=== PATIENT | female | born 1980 | race Caucasian/White ===

== ENCOUNTER 2019-04-22 03:12 | Emergency (ER) | payer SELFPAY ==
[~2019-04-22] VITALS: Ht 152.4 cm; Wt 58.8 kg
[2019-04-22 03:14] VITALS: BP 123/75; PULSE 75; RESP 18; Ht 152.4 cm; Wt 58.8 kg
--- NOTE | 2019-04-22 04:38 | ERD ---
ER Documentation Chief Complaint Chief Complaint BURNING EYES X'S 3 WEEKS HPI Patient is a 38-year-old female with no past medical history presenting to the clinic for bilateral dry eyes X 3 weeks. She reports that her eyes feel like they are always burning like sandpaper. She denies any ocular discharge, crusting, visual impairment. Patient denies any OTC medication . ROS All systems reviewed and are negative except as per history of present illness. Allergies Allergies: Coded Allergies: No Known Allergy (Unverified , 04/22/19) PMhx/Soc Medical and Surgical Hx: pt denies Medical Hx History of Surgery: Yes () Anesthesia Reaction: No Hx Neurological Disorder: No Hx Respiratory Disorders: No Hx Cardiac Disorders: No Hx Psychiatric Problems: No Hx Miscellaneous Medical Probl: No Hx Alcohol Use: No Hx Substance Use: No Hx Tobacco Use: No Smoking Status: Never smoker FmHx Family History: No diabetes, No coronary disease, No other Physical Exam Vitals Vital Signs Date Temp Pulse Resp B/P (MAP) Pulse Ox O2 O2 Flow FiO2 Time Delivery Rate 04/22/19 96.8 75 18 123/75 99 03:14 (91) Physical Exam Const: No acute distress Head: Atraumatic Eyes: Dry Conjunctiva with mild erythema. No discharge, crusting. PERRLA. EOMI. ENT: Normal External Ears, Nose and Mouth. Neck: Full range of motion. No meningismus. Resp: Clear to auscultation bilaterally Cardio: Regular rate and rhythm, no murmurs Neur: Awake and alert Psych: Normal Mood and Affect Procedures/MDM Patient was seen and evaluated for dry eyes without complication. No further work-up required for today's visit. Patient stable ready for discharge. Follow-up with PCP. Patient will be discharged with artificial eyedrops. Departure Diagnosis: Primary Impression: Dry eyes due to decreased tear production Condition: Stable Patient Instructions: Treating Dry Eyes, What Are Dry Eyes? Referrals: [facility] Additional Instructions: Paciente aconseja volver a Departamento de urgencias inmediatamente para sntomas nuevos o que empeoran . Paciente aconseja posteriores con el PCP en 2-3 salas . Paciente verbaliza la comprehensin y est de acuerdo con el tratamiento y el curso de accin. Si el paciente no tiene ninguna de atencin primaria pueden seguir con [facility] [address] [place] [address] o [facility] + [address] [address] MARIA ESTHER KIRK PA-C Apr 22, 2019 04:38
[2019-04-22] MEDS ORDERED: CARB15DR3 BOTH EYES (04:39)
[2019-04-22] MEDS ORDERED: MINE3.5O31 BOTH EYES (04:39)
== END 2019-04-22 04:43 | disposition home or self-care (01) ==
LOC: FTE 03:12
DX: H57.89 Other specified disorders of eye and adnexa (principal)
CPT/HCPCS: 99282

== ENCOUNTER 2019-05-25 03:00 | Emergency (ER) | payer SELFPAY ==
[~2019-05-25] VITALS: Ht 157.5 cm; Wt 57.6 kg
[~2019-05-25 03:00] MED LIST: ACET500C5 PO; CARB15DR3 BOTH EYES; IBUP800T48 PO; MINE3.5O31 BOTH EYES; ONDA4TAB14 PO
[2019-05-25 03:06] VITALS: Ht 157.5 cm; Wt 57.6 kg
[2019-05-25] MEDS ORDERED: METOCLOPRAMIDE 10 MG INJ IV STA (04:13)
[2019-05-25] MEDS ORDERED: SOD CHLORIDE 0.9% 1,000 ML IV STA (04:13)
[2019-05-25] MEDS: KETOROLAC 30 MG INJ IV STA ×2 (04:57→05:13)
--- NOTE | 2019-05-25 05:43 | ERD ---
ER Documentation Chief Complaint Chief Complaint Pt reports ROSADO not relieved with tylenol HPI 38-year-old female presents to ED complaining of headache and dizziness times today. She denies any previous history of headaches or migraines. She denies any head trauma. She reports feeling slightly nauseous. She has tried Tylenol without any relief of pain. She reports her headache feels like a tight band around her head and is throbbing sensation and rates it as 8 out of 10. She denies any other past medical history and does not take medications on a daily basis. ROS All systems reviewed and are negative except as per history of present illness. Medications Home Meds Active Scripts Acetaminophen* (Tylophen*) 500 Mg Capsule, 1 CAP PO Q6H PRN for PAIN AND OR ELEVATED TEMP, #20 CAP Prov:RAJINDER YADAV PA-C 05/25/19 Ondansetron (Ondansetron Odt) 4 Mg Tab.rapdis, 4 MG PO Q6H PRN for NAUSEA AND/OR VOMITING, #10 TAB Prov:RAJINDER YADAV PA-C 05/25/19 Ibuprofen* (Motrin*) 800 Mg Tab, 800 MG PO Q6H PRN for PAIN AND OR ELEVATED TEMP, #30 TAB Prov:RAJINDER YADAV PA-C 05/25/19 Carboxymethylcellulose Sodium* (Refresh Tears*) 15 Ml Drops, 2 DROP BOTH EYES QID, #1 EA Prov:MARIA ESTHER KIRK PA-C 04/22/19 Artificial Tears* (Akwa Oint*) 3.5 Gm Oint, 1 APPLIC BOTH EYES HS, #1 TUB Prov:MARIA ESTHER KIRK PA-C 04/22/19 Allergies Allergies: Coded Allergies: No Known Allergy (Unverified , 04/22/19) PMhx/Soc Medical and Surgical Hx: pt denies Medical Hx History of Surgery: Yes (CS) Anesthesia Reaction: No Hx Neurological Disorder: No Hx Respiratory Disorders: No Hx Cardiac Disorders: No Hx Psychiatric Problems: No Hx Miscellaneous Medical Probl: No Hx Alcohol Use: No Hx Substance Use: No Hx Tobacco Use: No Smoking Status: Never smoker FmHx Family History: No diabetes Physical Exam Vitals Vital Signs Date Temp Pulse Resp B/P (MAP) Pulse Ox O2 O2 Flow FiO2 Time Delivery Rate 05/25/19 98.8 88 20 127/59 100 03:06 (81) Physical Exam Const: No acute distress Head: Atraumatic, tenderness on the scalp throughout Eyes: Normal Conjunctiva, PERRLA Resp: Clear to auscultation bilaterally Cardio: Regular rate and rhythm, Abd: Soft, non tender, non distended. Neur: Awake and alert, CN 2-12 intact, no pronator drift, equal strength and sensation bilaterally 5 out of 5, able to follow all commands appropriately, good crab butcher strength Psych: Normal Mood and Affect Results 24 hrs Laboratory Tests Test 05/25/19 05:10 Bedside Urine pH (LAB) 6.0 Bedside Urine Protein (LAB) 1+ Bedside Urine Glucose (UA) Negative Bedside Urine Ketones (LAB) Negative Bedside Urine Blood Negative Bedside Urine Nitrite (LAB) Negative Bedside Urine Leukocyte Esterase (L Negative POC Beta HCG, Qualitative NEGATIVE Current Medications Medications Dose Sig/Rajeev Start Time Status Last (Trade) Ordered Route PRN Stop Time Admin Dose Reason Admin Sodium 1,000 ml @ Q1H STAT 05/25/19 DC 05/25/19 Chloride 1,000 mls/hr IV 04:13 04:41 05/25/19 05:12 10 mg ONCE STAT 05/25/19 DC 05/25/19 Metoclopramid IV 04:13 04:41 e HCl 05/25/19 04:15 (Reglan) Ketorolac 30 mg ONCE STAT 05/25/19 DC 05/25/19 Tromethamine IV 04:13 05:13 (Toradol) 05/25/19 04:15 Procedures/MDM ED COURSE: The patient was stable throughout ED course. I kept the patient informed of laboratory and diagnostic imaging results throughout the ED course. EKG: Read by Dr. Meeks, attending physician. EKG shows normal sinus rhythm at a rate of 62 bpm No arrhythmias, acute ST elevations or T wave changes were noted. MEDICATIONS GIVEN: IV fluids, Reglan, Toradol Patient tolerated medication well with no adverse reactions. Patient reported improvement in pain. MEDICAL DECISION MAKING: Patient is a 38-year-old female complaining of a tension headache times today. H&P and other data not c/w emergent process (eg. Subarachnoid hemorrhage, acute vertebral or carotid dissection, intracranial mass, epidural hematoma, subdural hematoma, dural venous sinus thrombosis, giant cell arteritis, pseudotumor cere nxion, meningitis, mass, intracranial bleed). Patient was given IV fluids and medications listed above. On reexamination patient was peacefully rested and stated that she felt significantly better. At this time patient is appropriate for outpatient treatment. She was discharged with the medications listed below. Patient was given strict return ED precautions symptoms persist or worsen. All questions were answered. Patient agreed the plan Vital signs were reviewed. Patient is afebrile. Patient was not hypoxic. Patient was hemodynamically stable. Patient was told to follow up with primary care for further care and management. PRESCRIPTION: Tylenol, Motrin, Zofran DISCHARGE: At this time, patient is stable for discharge and outpatient management. I have instructed the patient to follow-up with their primary care physician in 1-2 days. I have discussed with the patient the possibility of needing to see a specialist for further workup and imaging studies if symptoms persist. I have instructed the patient to promptly return to the ER for any new or worsening symptoms including increased pain, fever, nausea, vomiting, weakness or LOC. The patient expressed understanding of and agreement with this plan. All questions were answered. Home care instructions were provided. Disclaimer: Inadvertent spelling and grammatical errors are likely due to EHR/dictation software use and do not reflect on the overall quality of patient care. Also, please note that the electronic time recorded on this note does not necessarily reflect the actual time of the patient encounter. Departure Diagnosis: Primary Impression: Headache Headache type: tension-type Headache chronicity pattern: acute headache Intractability: not intractable Qualified Codes: G44.209 - Tension-type headache, unspecified, not intractable Condition: Fair Patient Instructions: Self-Care for Headaches Referrals: [facility] YOU HAVE RECEIVED A MEDICAL SCREENING EXAM AND THE RESULTS INDICATE THAT YOU DO NOT HAVE A CONDITION THAT REQUIRES URGENT TREATMENT IN THE EMERGENCY DEPARTMENT. FURTHER EVALUATION AND TREATMENT OF YOUR CONDITION CAN WAIT UNTIL YOU ARE SEEN IN YOUR DOCTORS OFFICE WITHIN THE NEXT 1-2 DAYS. IT IS YOUR RESPONSIBILITY TO MAKE AN APPOINTMENT FOR FOLOW-UP CARE. IF YOU HAVE A PRIMARY DOCTOR --you should call your primary doctor and schedule an appointment IF YOU DO NOT HAVE A PRIMARY DOCTOR YOU CAN CALL OUR PHYSICIAN REFERRAL HOTLINE AT IF YOU CAN NOT AFFORD TO SEE A PHYSICIAN YOU CAN CHOSE FROM THE FOLLOWING [facility] [address] [facility]. [facility] [address] [facility]. [facility] [address] [facility] [address] [facility] [address] [facility] [address] [facility]. [facility] YOU HAVE RECEIVED A MEDICAL SCREENING EXAM AND THE RESULTS INDICATE THAT YOU DO NOT HAVE A CONDITION THAT REQUIRES URGENT TREATMENT IN THE EMERGENCY DEPARTMENT. FURTHER EVALUATION AND TREATMENT OF YOUR CONDITION CAN WAIT UNTIL YOU ARE SEEN IN YOUR DOCTORS OFFICE WITHIN THE NEXT 1-2 DAYS. IT IS YOUR RESPONSIBILITY TO MAKE AN APPOINTMENT FOR FOLOW-UP CARE. IF YOU HAVE A PRIMARY DOCTOR --you should call your primary doctor and schedule and appointment IF YOU DO NOT HAVE A PRIMARY DOCTOR YOU CAN CALL OUR PHYSICIAN REFERRAL HOTLINE AT . IF YOU CAN NOT AFFORD TO SEE A PHYSICIAN YOU CAN CHOSE FROM THE FOLLOWING [facility] INSTITUTIONS: [facility] [address] [place] [address] [facility] [address] [place] [address] [facility] [address] [place] [address] Additional Instructions: Llame al doctor MAANA y kannan pati SALLIE PARA DENTRO DE 1-2 ALBERTS.Dgale a la secretaria que nosotros le instruimos hacer esta sallie.Avise o llame si moreno condicin se empeora antes de la sallie. Regresa aqui si peor o no mejor. RAJINDER YADAV PA-C May 25, 2019 05:43
[2019-05-25 06:14] VITALS: BP 114/58; PULSE 16; RESP 16
== END 2019-05-25 06:14 | disposition home or self-care (01) ==
LOC: FTE 03:00
DX: G44.209 Tension-type headache, unspecified, not intractable (principal)
CPT/HCPCS: 36415; 81003; 81025; 93005; 96374; 96375; 99284; J1885; J2765; J7030